=== PATIENT | female | born 1940 | race Caucasian/White ===

== ENCOUNTER 2016-12-04 08:04 | Day surgery (SDC) | payer MEDICARE, SELFPAY ==
[~2016-12-04] VITALS: Ht 182.9 cm; Wt 126.7 kg
--- NOTE | 2016-12-25 10:54 | OR ---
ADMIT: 12/04/2016 RM/LOC: [facility] MR#: [id number] [facility] [address] [place], [place] [address] [address] [place], [place] [id number] Operative/Delivery Room Report SEX: F AGE: 76 : 1940 CORRECTION: 12/05/2016 1132 vdg SURGERY DATE: 12/04/2016 SURGEON: Adebayo Love MD PROCEDURE: Complete colonoscopy with hot and cold biopsy polypectomy as well as removal of perivaginal foreign body. PREOPERATIVE DIAGNOSIS: Family history of colon cancer and positive Cologuard. POSTOPERATIVE DIAGNOSES: 1. Multiple colon polyps. 2. Perivaginal foreign body. COMPLICATION: None immediate. INDICATION FOR PROCEDURE: She has a family history of colon cancer. She had a positive Cologuard. She never had a colonoscopy. Thus, we are proceeding with colonoscopy. DESCRIPTION OF PROCEDURE: The patient was informed of the risk, benefits, and alternatives of the procedure. Informed consent was obtained. She is taken back to GI lab and placed in left lateral decubitus position. Sedation was provided by [employer]. Once appropriately sedated, rectal exam revealed good sphincter tone without palpable masses or lesions. A videocolonoscope was introduced to the rectum and passed to the cecum without difficulty. Image 1, 2, and 3 of 8 do reveal the cecal area. This confirmed with balootment and usual landmarks. Terminal ileum did invert, had multiple polyp like structures, which were biopsied. Terminal ileum was then cannulated. Biopsies were taken. Image 2 of 10 does reveal the inverted terminal ileum. Scope was then slowly removed with visualization of the remainder of the colonic mucosa. Prep was adequate. There was a 45 cm polyp approximately 4 mm as seen on image 4 of 10, which was removed with cold biopsy forceps. There were four polyps at approximately 15 cm that were less than 1 cm in size. They were removed with removed with cold biopsy forceps and seen in image 3/10. There were two polyps approximately 6 mm and 4 mm in size as seen in the image 6 of 10, which were located at 20cm and removed with hot biopsy forceps. There were two polyps at 30 cm seen in image 7/10, which were removed with cold biopsy forceps were less 1 cm in size and there was one polyp at 10 cm seen in image 9/10, which was removed with cold biopsy forceps less than 1 cm in size. Prep was ADMIT: 12/04/2016 RM/LOC: [facility] MR#: [id number] [facility] [address] [place], [place] [address] [address] [place] [address] Operative/Delivery Room Report SEX: F AGE: 76 : 1940 adequate. There are no other abnormalities noted. Scope was retroflexed revealing normal appearing recto-anal junction as revealed an image 10 of 10. The scope was straightened and procedure was terminated. She had a perivaginal foreign body, which was removed. She had slight irritation. We will put her on Keflex and send her to pathology to confirm. PLAN: We will have her follow up in one week to go over biopsy results. Adebayo Love MD/ rosie JOB #: [id number] CC: Adebayo Love, Attending Physician Eladio Sood, Family Physician Eladio Sood MD CORRECTION: 12/05/2016 1132 vdg
== END 2016-12-04 13:42 | disposition home or self-care (01) ==
LOC: SSS 08:04
PROC: 0DBE8ZX Excision of Large Intestine, Via Natural or Artificial Opening Endoscopic, Diagnostic (ICD-10-PCS; principal; 2016-12-04)
DX: Z12.11 Encounter for screening for malignant neoplasm of colon (principal); D12.6 Benign neoplasm of colon, unspecified; K63.5 Polyp of colon; K52.9 Noninfective gastroenteritis and colitis, unspecified; I10 Essential (primary) hypertension; E66.9 Obesity, unspecified; M19.90 Unspecified osteoarthritis, unspecified site; Z90.49 Acquired absence of other specified parts of digestive tract; Z88.8 Allergy status to other drugs, medicaments and biological substances; Z88.0 Allergy status to penicillin; Z79.899 Other long term (current) drug therapy; Z88.1 Allergy status to other antibiotic agents